=== PATIENT | male | born 1960 | race American Indian/Alaskan Native ===

== ENCOUNTER 2016-11-11 15:22 | Outpatient (CLI) | payer OTHER ==
--- NOTE | 2016-11-12 11:21 | XRay Report ---
LEFT WRIST, 4 views: HISTORY: Pain in left wrist, injury. Routine views demonstrate the carpal bones to be well mineralized with well preserved bony mineralization and interosseous joint spaces. The carpal and adjacent articular bones have normal contours. The surrounding soft tissues are unremarkable. 1 cm bone cyst in the distal ulna is suspected. IMPRESSION: No acute process.
--- NOTE | 2016-11-12 11:22 | XRay Report ---
Lumbar spine series 5 views. History: Low back pain. Findings: There is severe narrowing of the disc spaces at L4-5 with mild narrowing at the L5-S1 level. Mild anterior hypertrophic changes are seen at L4-5. Bone mineralization is normal. Alignment is normal. There no pars defects. The pedicles are intact. Impression: Severe degenerative disc disease at L4-5 with mild similar findings at L5-S1.
== END 2016-11-11 15:23 | disposition home or self-care (01) ==
LOC: XRAY 15:22
PROVIDERS: ATTEND Orthopaedic Surgery
DX: M51.36 Other intervertebral disc degeneration, lumbar region (principal); M25.532 Pain in left wrist
CPT/HCPCS: 72110

== ENCOUNTER 2017-01-19 13:33 | Outpatient (CLI) | payer OTHER ==
--- NOTE | 2017-01-19 14:22 | XRay Report ---
LEFT TIBIA/FIBULA, 2 views: History: Left leg pain. The internally fixated distal tibial fracture and non-fixated distal fibular fracture are unchanged in position and alignment since 12/15/16. There is increased calcified callus consistent with healing although fracture lines remain evident. No new acute process is appreciated. IMPRESSION: Healing distal tibial and fibular fractures as described.
== END 2017-01-19 13:34 | disposition home or self-care (01) ==
LOC: XRAY 13:33
PROVIDERS: ATTEND Orthopaedic Surgery
DX: M79.605 Pain in left leg (principal); S82.302D Unspecified fracture of lower end of left tibia, subsequent encounter for closed fracture with routine healing; S82.402D Unspecified fracture of shaft of left fibula, subsequent encounter for closed fracture with routine healing; X58.XXXD Exposure to other specified factors, subsequent encounter

== ENCOUNTER 2017-02-18 13:22 | Outpatient (CLI) | payer OTHER ==
--- NOTE | 2017-02-18 16:28 | XRay Report ---
Left tibia: Pain There is a medullary hal through the tibia stabilizing a distal tibia shaft fracture. Callus formation is seen around the fracture site. There is no internal callus identified. There is a slightly offset fracture of the distal fibula shaft also with surrounding callus formation. Mild soft tissue swelling. These findings are unchanged compared to the prior exam of January 19, 2017. Impression: No change in alignment or significant healing progression compared to prior exam.
== END 2017-02-18 13:23 | disposition home or self-care (01) ==
LOC: XRAY 13:22
PROVIDERS: ATTEND Orthopaedic Surgery
DX: S82.492D Other fracture of shaft of left fibula, subsequent encounter for closed fracture with routine healing (principal); M25.762 Osteophyte, left knee; X58.XXXD Exposure to other specified factors, subsequent encounter

== ENCOUNTER 2017-03-24 12:32 | Outpatient (CLI) | payer OTHER ==
--- NOTE | 2017-03-24 21:17 | XRay Report ---
FINAL REPORT PROCEDURE: XR TIBIA FIBULA 2V LT TECHNIQUE: LEFT tibia and fibula radiographs, AP and lateral views. CPT 53334 HISTORY: PAIN IN LEFT LEG COMPARISON: No prior studies are available for comparison. FINDINGS: Fracture (s) and/or Dislocation(s): A partially healed the distal tibial and fibular fractures are noted with callus. Internal fixation hardware including intramedullary nail and screws are identified through the tibia. The alignment of the fracture fragments is satisfactory.. Joint space(s): Normal . Soft tissues: Normal . Bone mineralization: Normal . Foreign bodies: None . IMPRESSION: Partially healed distal tibial and fibular fractures. Comparison with any prior studies would be of help. No acute fracture..
== END 2017-03-24 12:33 | disposition home or self-care (01) ==
LOC: XRAY 12:32
PROVIDERS: ATTEND Orthopaedic Surgery
DX: M79.605 Pain in left leg (principal); S82.302D Unspecified fracture of lower end of left tibia, subsequent encounter for closed fracture with routine healing; S82.402D Unspecified fracture of shaft of left fibula, subsequent encounter for closed fracture with routine healing; X58.XXXD Exposure to other specified factors, subsequent encounter

== ENCOUNTER 2017-07-24 11:51 | Outpatient (CLI) | payer OTHER ==
--- NOTE | 2017-07-24 14:01 | XRay Report ---
LEFT TIBIA/FIBULA, 2 views: History: Pain in left leg. Fractures of the distal tibia and fibula are unchanged in position and alignment since 03/24/17. Bony remodeling is occurring at both fracture sites. The intramedullary hal within the tibia is again noted and unchanged. No new fracture or bony destruction. IMPRESSION: Healing fractures of the distal tibia and fibula.
== END 2017-07-24 11:52 | disposition home or self-care (01) ==
LOC: XRAY 11:51
PROVIDERS: ATTEND Orthopaedic Surgery
DX: S82.202D Unspecified fracture of shaft of left tibia, subsequent encounter for closed fracture with routine healing (principal); S82.402D Unspecified fracture of shaft of left fibula, subsequent encounter for closed fracture with routine healing; X58.XXXD Exposure to other specified factors, subsequent encounter